=== PATIENT | female | born 1970 | race Caucasian/White ===

== ENCOUNTER → 2022-01-19 | Outpatient (CLI) | payer OTHER ==
--- NOTE | 2022-01-19 16:35 | Diagnostic Imaging Report ---
INDICATION: Pain EXAMINATION: Left knee 01/19/2022 FINDINGS: 4 views of the knee. There is moderate medial compartment narrowing with the lateral joint spaces maintained. There is mild patellofemoral narrowing with irregularity along the posterior border of the medial facet likely due to spurring. A small fracture difficult to completely exclude but felt to be much less likely. There is a moderate joint effusion. No dislocations IMPRESSION: 1. Focal irregularity along the medial patellar facet on the merchant's view. There is persistent pain CT could help exclude a small avulsion fracture. Otherwise this most likely represents spurring. 2. Joint effusion. Dictated by: Dictated on workstation # [id number]
== END ==
LOC: ORTHO 13:58
PROVIDERS: ATTEND Orthopaedic Surgery
DX: M17.12 Unilateral primary osteoarthritis, left knee (principal)
CPT/HCPCS: 20610; 73564; G0463

== ENCOUNTER → 2022-07-06 | Outpatient (CLI) | payer OTHER | LOC: ORTHO 14:45 | PROVIDERS: ATTEND Orthopaedic Surgery | DX: M17.12 Unilateral primary osteoarthritis, left knee (principal); E03.9 Hypothyroidism, unspecified | CPT/HCPCS: 20610 ==

== ENCOUNTER → 2022-08-24 | Outpatient (CLI) | payer OTHER ==
--- NOTE | 2022-08-24 16:39 | Diagnostic Imaging Report ---
INDICATION: Right knee pain. TIME OF EXAM: 3:00 PM. TECHNIQUE: Four views of the right knee were obtained. FINDINGS: There is medial and patellofemoral compartmental degenerative change with joint space narrowing and marginal spurring. The lateral compartment is well-maintained. No fracture, dislocation, or effusion is detected. IMPRESSION: Degenerative changes. No acute bony abnormality is detected. Dictated by: Dictated on workstation # [id number]
== END ==
LOC: ORTHO 14:45
PROVIDERS: ATTEND Orthopaedic Surgery
DX: M17.0 Bilateral primary osteoarthritis of knee (principal); E03.9 Hypothyroidism, unspecified
CPT/HCPCS: 73564

== ENCOUNTER → 2022-12-02 | Outpatient (CLI) | payer OTHER | LOC: ORTHO 13:00 | PROVIDERS: ATTEND Orthopaedic Surgery | DX: M17.0 Bilateral primary osteoarthritis of knee (principal) | CPT/HCPCS: 20610 ==